=== PATIENT | female | born 1980 | race Caucasian/White ===

== ENCOUNTER 2016-12-14 09:18 | Emergency (ER) | payer MEDICAID, OTHER ==
[~2016-12-14] VITALS: Ht 172.7 cm; Wt 82.0 kg
[2016-12-14] MEDS ORDERED: SODIUM CHLORIDE 0.9% 1,000ML IVBOLUS ONE (10:30)
[2016-12-14] MEDS ORDERED: SODIUM CHLORIDE FLUSH 10ML SYR IVF ONE (10:30)
[2016-12-14] MEDS ORDERED: ONDANSETRON 2MG/ML, 2ML IVPush ONE (10:30)
[2016-12-14] MEDS ORDERED: ONDANSETRON 2MG/ML, 2ML ONE (10:44)
[2016-12-14 10:45] LABS: ASPARTATE AMINO TRANSFERASE 19 U/L (15-37); BLOOD UREA NITROGEN 12 mg/dL (7-18)
[2016-12-14 12:04] LABS: IS PT STATUS REG ER OR PRE ER? YES
[2016-12-14 13:29] VITALS: BP 133/84
[2016-12-14] MEDS ORDERED: MAALOX/HYOSCYAMINE/LIDOCAINE 45 ML BOTTLE PO ONE (13:30)
== END 2016-12-14 13:31 | disposition home or self-care (01) ==
LOC: ED 11:23
DX: R07.2 Precordial pain (principal); R11.0 Nausea; R42 Dizziness and giddiness; R53.1 Weakness
CPT/HCPCS: 36415; 80053; 80178; 81001; 83690; 84484; 85025; 87077; 87086; 93005; 96361; 96374; 99285; J2405; J7030; 87186

== ENCOUNTER 2019-04-20 16:06 | Emergency (ER) | payer BC, MEDICAID, OTHER ==
[~2019-04-20] VITALS: Ht 172.7 cm; Wt 84.1 kg
[2019-04-20 17:18] LABS: BASOPHILS # (AUTO) 0.03 x10^3/uL (0-0.1); BASOPHILS % (AUTO) 0 % (0-1); EOSINOPHILS # (AUTO) 0.07 x10^3/uL (0-0.4); EOSINOPHILS % (AUTO) 1 % (1-7); LYMPHOCYTES # (AUTO) 2.61 x10^3/uL (1-3.4); LYMPHOCYTES % (AUTO) 30 % (22-44); MD NO; MEAN CORPUSCULAR HEMOGLOBIN 29.8 pg (27.0-34.8); MEAN CORPUSCULAR HGB CONC 33.3 g/dL (32.4-35.8); MEAN CORPUSCULAR VOLUME 89.6 fL (80-100); MEAN PLATELET VOLUME 9.6 fL (7.4-10.4); MONOCYTES # (AUTO) 0.52 x10^3/uL (0.2-0.8); MONOCYTES % (AUTO) 6 % (2-9); NEUTROPHILS # (AUTO) 5.37 x10^3/uL (1.8-6.8); NEUTROPHILS % (AUTO) 63 % (42-75); PLATELET COUNT 279 x10^3/uL (130-400); RED BLOOD COUNT 5.22 x10^6/uL (3.82-5.3); RED CELL DISTRIBUTION WIDTH 13.8 % (9.6-15.2)
[2019-04-20 17:27] LABS: ANION GAP 4 mmol/L (5-15); CALCIUM 9.8 mg/dL (8.5-10.1); CHLORIDE 108 mmol/L (98-107); CREATININE 0.78 mg/dL (0.55-1.02)
--- NOTE | 2019-04-20 17:52 | NUR ---
PATIENT BROUGTH BACK FROM TRIAGE WITH CHIEF COMPLAINT OF FEELING DIZZY AND RACING HEART INTERMITTENT SINCE TUESDAY. THE PATIENT IS ALERT & ORIENTED.
--- NOTE | 2019-04-20 17:53 | NUR ---
PATIENT ALSO STATES SHE HAS LOWER BACK/FLANK PAIN
--- NOTE | 2019-04-20 19:15 | NUR ---
REPORT RECEIVED FROM SIMÓN ADORNO. ASSUMED CARE OF PT.
--- NOTE | 2019-04-20 19:17 | NUR ---
REPORT TO [facility]
[2019-04-20] MEDS ORDERED: MECLIZINE CHEWABLE 25 MG TAB ONE (19:26)
[2019-04-20] MEDS ORDERED: MECLIZINE CHEWABLE 25 MG TAB PO ONE (19:30)
--- NOTE | 2019-04-20 19:31 | NUR ---
Assisted in pt care--pt medicated per JUL for continued dizziness. Pt NSR on monitor with occassional PVC noted. Otherwise VSS. Per pt, ERP has been in to recheck. Awaiting further dispo. Juice and crackers given per pt request.
[2019-04-20 20:16] VITALS: BP 135/84
== END 2019-04-20 20:18 | disposition home or self-care (01) ==
LOC: ED 19:51
DX: R42 Dizziness and giddiness (principal); R55 Syncope and collapse; I48.91 Unspecified atrial fibrillation; F32.9 Major depressive disorder, single episode, unspecified; F29 Unspecified psychosis not due to a substance or known physiological condition; F41.1 Generalized anxiety disorder; Z90.710 Acquired absence of both cervix and uterus
CPT/HCPCS: 36415; 80048; 82040; 84443; 85025; 93005; 99284

== ENCOUNTER 2020-04-29 23:06 | Emergency (ER) | payer OTHER ==
[~2020-04-29] VITALS: Ht 172.7 cm; Wt 82.0 kg
[2020-04-29] MEDS ORDERED: MORPHINE SULFATE 4 MG/ML, 1ML IVPush ONE (23:30)
[2020-04-29] MEDS ORDERED: ONDANSETRON 2MG/ML, 2ML IVPush ONE (23:30)
[2020-04-29] MEDS ORDERED: ONDANSETRON 2MG/ML, 2ML ONE (23:40)
[2020-04-29] MEDS ORDERED: MORPHINE SULFATE 4 MG/ML, 1ML ONE (23:41)
[2020-04-29 23:48] LABS: BASOPHILS % (AUTO) 1 % (0-1); EOSINOPHILS % (AUTO) 1 % (1-7); LYMPHOCYTES % (AUTO) 34 % (22-44); MEAN CORPUSCULAR HEMOGLOBIN 30.4 pg (27.0-34.8); MEAN CORPUSCULAR HGB CONC 34.6 g/dL (32.4-35.8); MEAN PLATELET VOLUME 9.5 fL (7.4-10.4); MONOCYTES % (AUTO) 6 % (2-9); NEUTROPHILS % (AUTO) 59 % (42-75); PLATELET COUNT 237 x10^3/uL (130-400); RED BLOOD COUNT 4.95 x10^6/uL (3.82-5.3); RED CELL DISTRIBUTION WIDTH 12.9 % (9.6-15.2)
[2020-04-29 23:49] LABS: MD NO
[2020-04-30 00:07] LABS: ALANINE AMINOTRANSFERASE 24 U/L (12-78); ALBUMIN 3.9 g/dL (3.4-5.0); ANION GAP 4 mmol/L (5-15); CALCIUM 9.2 mg/dL (8.5-10.1); CHLORIDE 107 mmol/L (98-107); CREATININE 0.92 mg/dL (0.55-1.02)
[2020-04-30 00:08] LABS: MICROSCOPIC NOT IND
[2020-04-30 00:09] LABS: ALKALINE PHOSPHATASE 62 U/L (45-117); BILIRUBIN,TOTAL 0.5 mg/dL (0.2-1.0); TOTAL PROTEIN 7.5 g/dL (6.4-8.2)
[2020-04-30 02:35] VITALS: BP 113/73
== END 2020-04-30 02:38 | disposition home or self-care (01) ==
LOC: ED 04-30 01:31
DX: R10.11 Right upper quadrant pain (principal); I48.91 Unspecified atrial fibrillation; Z90.710 Acquired absence of both cervix and uterus
CPT/HCPCS: 36415; 76700; 80053; 81003; 83690; 85025; 96374; 96375; 99284; J2270; J2405